=== PATIENT | male | born 1985 | race African-American/Black ===

== ENCOUNTER 2017-01-01 14:27 | Emergency (ER) | payer SELFPAY ==
[~2017-01-01] VITALS: Ht 165.1 cm; Wt 95.0 kg
[~2017-01-01 14:27] MED LIST: CYCL-36 PO; IBUP800T23 PO
[2017-01-01 14:28] VITALS: BP 136/86; PULSE 89; RESP 17; TEMP 98.5; O2SAT 96
--- NOTE | 2017-01-01 15:14 | PD ---
HPI Chief Complaint: Back/ Neck Pain or Injury Time Seen by Provider: 15:12 Travel History International Travel<30 days: No Contact w/Intl Traveler<30days: No Traveled to known affect area: No History of Present Illness HPI Patient comes in complaining of a muscle soreness to his upper back ongoing for 3 days. Pain is constant but gets worse at night and with certain movement. Patient denies doing anything for this aside from taking [id number] sleeping pills last night to help sleep. Patient denies any known trauma, fevers, loss or change in bowel or bladder, IV drug use, chest pain, or shortness of breath. Patient reports he does a lot of heavy lifting at his job. PFSH Past Medical History Medical History: Denies Significant Hx Social History Alcohol Use: Yes Tobacco Use: Yes Substance Use: Yes (marijuana) Allergies-Medications (Allergen,Severity, Reaction): Coded Allergies: No Known Allergies (Unverified , 01/01/17) Reported Meds & Prescriptions Reported Meds & Active Scripts Active Diclofenac Sodium DR (Diclofenac Sodium) 75 Mg Tabdr 75 Mg PO Q12HR PRN Robaxin (Methocarbamol) 500 Mg Tab 500 Mg PO Q8HR PRN Review of Systems Except as stated in HPI: all other systems reviewed are Neg Physical Exam Narrative GENERAL: Well-developed, overly nourished, in no acute distress, and non-ill appearing. SKIN: Warm and dry. HEAD: Atraumatic. Normocephalic. EYES: Pupils equal and round. EOMI. No scleral icterus. No injection or drainage. ENT: No nasal bleeding or discharge. Mucous membranes pink and moist. NECK: Trachea midline. Supple. No nuclear rigidity. RESPIRATORY: No accessory muscle use. No respiratory distress. MUSCULOSKELETAL: No obvious deformities. No clubbing. No cyanosis. No edema. Full range of motion. No tenderness or crepitus or midline thoracic spine. Patient reports tenderness to palpation throughout the musculature of his posterior thoracic cavity. NEUROLOGICAL: Awake and alert. No obvious cranial nerve deficits. Motor grossly within normal limits. Normal speech. PSYCHIATRIC: Appropriate mood and affect; insight and judgment normal. Data Data Last Documented VS Vital Signs Date Time Temp Pulse Resp B/P Pulse Ox O2 Delivery O2 Flow Rate FiO2 01/01/17 14:28 98.5 89 17 136/86 96 Room Air MDM Medical Decision Making Medical Screen Exam Complete: Yes Emergency Medical Condition: Yes Differential Diagnosis Fracture, strain, contusion, other Narrative Course The patient presented complaining of back pain. There was no history of recent fall or blunt trauma. However, history elicited activity likely causing muscular strain and injury. There was no evidence to support genitourinary etiology. There is also no evidence to suggest vascular pathology such as AAA dissection. No fevers or other evidence to suspect infectious processes, abscess , osteomyelitis etc. The patients neurological exam is normal with normal motor and sensory. There is no saddle paresthesias reported and no bowel or bladder incontinence or retention. I suspect the pain is mechanical in nature. Clinical suspicion, plan of care and management was discussed with the patient. The patient was instructed to follow up with their health care provider. The patient was also instructed to return if the pain worsened, changed, or developed weakness or bowel or bladder trouble. The patient agreed with plan. Patient in no obvious distress upon re-evaluation. Patient was asked if they wanted to speak to my attending, which the patient did not wish to do at this time. Any questions/concerns in reference to patient diagnosis/condition discussed and clarified prior to patient's discharge. Reinforced sheer importance of close follow up with patient's primary physician or primary care clinic. Instructed patient to return to ED immediately, if symptoms return/ worsen. Pt showed understanding of above instructions. Further instructions and recommendations were detailed in discharge paperwork. Pt ambulated without difficulty out of ED at discharge. Diagnosis Primary Impression: Thoracic back pain Qualified Code: M54.6 - Bilateral thoracic back pain, unspecified chronicity Referrals: Stef Downs MD Patient Instructions: General Instructions, Thoracic Back Strain (ED), Upper Back Exercises (GEN) Departure Forms: Work Release Enter return to work date: Jan 03, 2017 Additional Instructions: Follow-up with your primary care physician and/or orthopedics this week for reevaluation. Take all medication as prescribed. Return to the emergency department if symptoms get worse. Med/Other Pt SpecificInfo: Prescription(s) given Scripts Diclofenac Sodium DR 75 Mg Tabdr75 Mg PO Q12HR PRN (PAIN SCALE 1 TO 10) #12 TAB Ref 0 Prov:Evgeny Murray MD 01/01/17 Methocarbamol (Robaxin)500 Mg Jcu250 Mg PO Q8HR PRN (MUSCLE PAIN) #15 TAB Ref 0 Prov:Evgeny Murray MD 01/01/17 Disposition: 01 DISCHARGE HOME Condition: Stable Vidal Deleon Jan 01, 2017 15:14 Vidal Deleon Jan 01, 2017 15:14
[2017-01-01] MEDS ORDERED: DICL75TA PO (15:15)
[2017-01-01] MEDS ORDERED: ROBA500T PO (15:15)
== END 2017-01-01 15:49 | disposition home or self-care (01) ==
LOC: NEPB 14:27
DX: M54.6 Pain in thoracic spine (principal); Z72.0 Tobacco use; X50.0XXA Overexertion from strenuous movement or load, initial encounter; Y93.9 Activity, unspecified; Y92.9 Unspecified place or not applicable; Y99.0 Civilian activity done for income or pay
CPT/HCPCS: 99283

== ENCOUNTER 2017-07-04 10:37 | Emergency (ER) | payer SELFPAY ==
[~2017-07-04] VITALS: Ht 165.1 cm; Wt 84.0 kg
[~2017-07-04 10:37] MED LIST changes: -CYCL-36 PO; +DICL75TA PO; -IBUP800T23 PO; +ROBA500T PO
[2017-07-04 10:39] VITALS: BP 214/124; PULSE 50; RESP 19; TEMP 98.2; O2SAT 97
[2017-07-04] MEDS ORDERED: SODIUM CHLOR 0.9% 1000 ML INJ 1,000 ML IV SCH (10:53)
[2017-07-04] MEDS ORDERED: LIDOCAINE VISCOUS 2% SOLN 15 ML UDC PO ONE (11:00)
[2017-07-04] MEDS ORDERED: ALUMINUM/MAGNESIUM/SIMETH 30 ML CUP PO ONE (11:00)
[2017-07-04] MEDS ORDERED: SODIUM CHLORIDE 0.9% FLUSH 10 ML FLUSH IV FLUSH PRN (11:00)
[2017-07-04] MEDS ORDERED: ONDANSETRON HCL 4 MG/2 ML VIAL IVP ONE (11:00)
[2017-07-04] MEDS ORDERED: MORPHINE SULFATE 8 MG/ML INJ IV PUSH ONE (11:00)
--- NOTE | 2017-07-04 11:02 | PD ---
HPI Chief Complaint: GI Complaint Time Seen by Provider: 10:53 Travel History International Travel<30 days: No Contact w/Intl Traveler<30days: No Traveled to known affect area: No History of Present Illness HPI Patient is a 32-year-old male smoker presents emergency Department with sudden onset epigastric pain radiating to his back after dropping off his daughter at school this morning. According to EMS the patient felt well enough. [place] proceeded to a local pharmacy and bought some Tums and took them but that did not help. He states been feeling nauseous and dehydrated this denies a history of working out in the sun no history of alcohol ingestion. He states that yesterday when going to bed he felt fine. He states he never had these symptoms before. He states his symptoms are severe. [facility] Past Medical History Medical History: Denies Significant Hx Past Surgical History Surgical History: No Previous Surgery Social History Alcohol Use: No Tobacco Use: Yes (1 PPD) Substance Use: Yes (marijuana) Allergies-Medications (Allergen,Severity, Reaction): Coded Allergies: No Known Allergies (Unverified , 07/04/17) Reported Meds & Prescriptions Reported Meds & Active Scripts Active Pantoprazole (Pantoprazole Sodium) 40 Mg Tab 40 Mg PO DAILY Bentyl (Dicyclomine HCl) 10 Mg Cap 10 Mg PO TID PRN Zofran (Ondansetron HCl) 4 Mg Tab 4 Mg PO Q6HR PRN Review of Systems Except as stated in HPI: all other systems reviewed are Neg Physical Exam Narrative GENERAL: Well-developed well-nourished, writhing back and forth in the ER stretcher appears to be in significant pain. He is diaphoretic SKIN: Focused skin assessment warm/dry. HEAD: Atraumatic. Normocephalic. EYES: Pupils equal and round. No scleral icterus. No injection or drainage. ENT: No nasal bleeding or discharge. Mucous membranes pink and moist. NECK: Trachea midline. No JVD. CARDIOVASCULAR: Regular rate and rhythm. No murmur appreciated. RESPIRATORY: No accessory muscle use. Clear to auscultation. Breath sounds equal bilaterally. GASTROINTESTINAL: Abdomen soft, moderately tender in the epigastric area., nondistended. Hepatic and splenic margins not palpable. No CVA tenderness. MUSCULOSKELETAL: No obvious deformities. No clubbing. No cyanosis. No edema. NEUROLOGICAL: Awake and alert. No obvious cranial nerve deficits. Motor grossly within normal limits. Normal speech. PSYCHIATRIC: Appropriate mood and affect; insight and judgment normal. Data Data Last Documented VS Vital Signs Date Time Temp Pulse Resp B/P (MAP) Pulse Ox O2 Delivery O2 Flow Rate FiO2 07/04/17 14:33 07/04/17 14:16 55 20 98 Room Air 07/04/17 10:39 98.2 Orders Orders Complete Blood Count With Diff (07/04/17 10:53) Comprehensive Metabolic Panel (07/04/17 10:53) Lipase (07/04/17 10:53) Prothrombin Time / Inr (Pt) (07/04/17 10:53) Act Partial Throm Time (Ptt) (07/04/17 10:53) Urinalysis - C+S If Indicated (07/04/17 10:53) Iv Access Insert/Monitor (07/04/17 10:53) Ecg Monitoring (07/04/17 10:53) Oximetry (07/04/17 10:53) Ondansetron Inj (Zofran Inj) (07/04/17 11:00) Sodium Chlor 0.9% 1000 Ml Inj (Ns 1000 M (07/04/17 10:53) Sodium Chloride 0.9% Flush (Ns Flush) (07/04/17 11:00) Morphine Inj (Morphine Inj) (07/04/17 11:00) Al-Mag Hy-Si 40-40-4 Mg/Ml Liq (Mag-Al P (07/04/17 11:00) Lidocaine 2% Viscous (Xylocaine 2% Visco (07/04/17 11:00) Cta Thor Abd Aorta W Iv C W3d (07/04/17 ) Creatine Kinase (Cpk) (07/04/17 10:53) Iohexol 350 Inj (Omnipaque 350 Inj) (07/04/17 11:48) Labs Laboratory Tests Test 07/04/17 11:05 07/04/17 13:45 White Blood Count 22.9 TH/MM3 Red Blood Count 5.22 MIL/MM3 Hemoglobin 14.7 GM/DL Hematocrit 44.2 % Mean Corpuscular Volume 84.7 FL Mean Corpuscular Hemoglobin 28.2 PG Mean Corpuscular Hemoglobin Concent 33.3 % Red Cell Distribution Width 14.1 % Platelet Count 132 TH/MM3 Mean Platelet Volume 10.4 FL Neutrophils (%) (Auto) 85.5 % Lymphocytes (%) (Auto) 9.8 % Monocytes (%) (Auto) 3.9 % Eosinophils (%) (Auto) 0.6 % Basophils (%) (Auto) 0.2 % Neutrophils # (Auto) 19.7 TH/MM3 Lymphocytes # (Auto) 2.2 TH/MM3 Monocytes # (Auto) 0.9 TH/MM3 Eosinophils # (Auto) 0.1 TH/MM3 Basophils # (Auto) 0.0 TH/MM3 CBC Comment AUTO DIFF Differential Comment AUTO DIFF CONFIRMED Platelet Estimate LOW Platelet Morphology Comment NORMAL Prothrombin Time 11.0 SEC Prothromb Time International Ratio 1.0 RATIO Activated Partial Thromboplast Time 27.0 SEC Blood Urea Nitrogen 12 MG/DL Creatinine 1.00 MG/DL Random Glucose 134 MG/DL Total Protein 8.2 GM/DL Albumin 4.0 GM/DL Calcium Level 8.8 MG/DL Alkaline Phosphatase 58 U/L Aspartate Amino Transf (AST/SGOT) 20 U/L Alanine Aminotransferase (ALT/SGPT) 15 U/L Total Bilirubin 0.4 MG/DL Sodium Level 139 MEQ/L Potassium Level 3.4 MEQ/L Chloride Level 105 MEQ/L Carbon Dioxide Level 25.9 MEQ/L Anion Gap 8 MEQ/L Estimat Glomerular Filtration Rate 106 ML/MIN Total Creatine Kinase 248 U/L Lipase 248 U/L Urine Collection Type VOIDED Urine Color YELLOW Urine Turbidity CLEAR Urine pH 5.0 Urine Specific [place] GREATER THAN 1.030 Urine Protein NEG mg/dL Urine Glucose (UA) NEG mg/dL Urine Ketones NEG mg/dL Urine Occult Blood NEG Urine Nitrite NEG Urine Bilirubin NEG Urine Leukocyte Esterase NEG Urine WBC 0-2 /hpf Urine Squamous Epithelial Cells 0-2 /hpf Urine Mucus FEW /lpf Urine Sperm FEW Microscopic Urinalysis Comment CULT NOT INDICATED MDM Medical Decision Making Medical Screen Exam Complete: Yes Emergency Medical Condition: Yes Differential Diagnosis pancreatitis, dissection, cholecystitis, gastritis, acute abdomen. Narrative Course Patient roomed in emergency department, he appears fairly uncomfortable was given morphine GI cocktail Zofran. On multiple reassessments he is sleeping soundly and in no obvious distress. Arouses easily and his Rafat tenderness is resolved. 22,000 white count CAT scan of the abdomen was performed which shows no significant abdominal pathology. This is a CTA chest aorta and aortic caliber and appearance is normal according to reading radiologist: Last 24 hours Impressions Aorta CTA 07/04/17 0000 Signed Impressions: Service Date/Time: Tuesday, July 04, 2017 11:17 - CONCLUSION: Negative for dissection. Orlin Randall MD FACR The remainder of the report from the CT abdomen shows no obvious source of his abdominal pain. Gastric causes need to be considered. The patient is feeling better and would like to go home. Shortly after place for discharge was informed by nursing that he is still feeling lousy, was discussed with him that if he wanted to stay in the hospital for further pain control and evaluation demonstrated a white count this would be appropriate that he would like to try going home at this time. Multiple prescriptions written, discussed return to ED criteria. He is calling a ride home per my instructions as he received morphine. He states that he will not be driving nor walking home. Diagnosis Primary Impression: Abdominal pain Additional Impression: Leukocytosis Med/Other Pt SpecificInfo: Prescription(s) given Scripts Pantoprazole (Pantoprazole) 40 Mg Tab 40 MG PO DAILY for Reflux, #30 TAB 0 Refills Prov: Evgeny Murray MD 07/04/17 Dicyclomine (Bentyl) 10 Mg Cap 10 MG PO TID Y for Bowel Management, #30 CAP 0 Refills Prov: Evgeny Murray MD 07/04/17 Ondansetron (Zofran) 4 Mg Tab 4 MG PO Q6HR Y for NAUSEA OR VOMITING, #30 TAB 0 Refills Prov: Evgeny Murray MD 07/04/17 Disposition: 01 DISCHARGE HOME Condition: Stable Evgeny Murray MD Jul 04, 2017 11:02
[2017-07-04 11:05] VITALS: BP 161/100; PULSE 50; RESP 24; RESP 26; O2SAT 97
[2017-07-04 11:25] LABS: AUTOMATED NEUTROPHIL # 19.7 TH/MM3 (1.8-7.7); BASOPHIL % 0.2 % (0.0-2.0); EOSINOPHIL # 0.1 TH/MM3 (0-0.4); EOSINOPHIL % 0.6 % (0.0-4.0); HEMATOCRIT 44.2 % (39.0-51.0); LYMPH % 9.8 % (9.0-44.0); LYMPHOCYTE # 2.2 TH/MM3 (1.0-4.8); MEAN CELL VOLUME 84.7 FL (80.0-100.0); MEAN CORPUSCULAR HEMOGLOBIN 28.2 PG (27.0-34.0); MEAN CORPUSCULAR HGB CONC 33.3 % (32.0-36.0); MONO % 3.9 % (0.0-8.0); NEUT % 85.5 % (16.0-70.0); PLATELET COUNT 132 TH/MM3 (150-450); RED BLOOD COUNT 5.22 MIL/MM3 (4.50-5.90); RED CELL DISTRIBUTION WIDTH 14.1 % (11.6-17.2); WHITE BLOOD COUNT 22.9 TH/MM3 (4.0-11.0)
[2017-07-04 11:26] LABS: HEMO FLAGS AUTO DIFF
[2017-07-04 11:30] LABS: CHLORIDE 105 MEQ/L (98-107); POTASSIUM 3.4 MEQ/L (3.5-5.1); SODIUM (NA) 139 MEQ/L (136-145)
[2017-07-04 11:35] LABS: ANION GAP 8 MEQ/L (5-15); BICARBONATE 25.9 MEQ/L (21.0-32.0); BLOOD UREA NITROGEN 12 MG/DL (7-18)
[2017-07-04 11:38] LABS: ALT (GPT) 15 U/L (12-78); AST (GOT) 20 U/L (15-37); GLOMERULAR FILTRATION RATE 106 ML/MIN (>89)
[2017-07-04 11:39] LABS: TOTAL BILIRUBIN ADULT 0.4 MG/DL (0.2-1.0)
[2017-07-04 11:40] LABS: ALKALINE PHOSPHATASE 58 U/L (45-117); CREATINE KINASE 248 U/L (39-308)
[2017-07-04] MEDS ORDERED: IOHEXOL 350 MG/ML 10 ML VIAL (for RAD DIAG) IVCONTRAST ONE (11:48)
--- NOTE | 2017-07-04 12:18 | RADRPT ---
EXAM DATE/TIME: 07/04/2017 11:17 [place] COMPARISON: No previous studies available for comparison. INDICATIONS : Epigastric pain radiating to right lower quadrant. IV CONTRAST: 95 cc Omnipaque 350 (iohexol) IV RADIATION DOSE: 17.77 CTDIvol (mGy) MEDICAL HISTORY : None SURGICAL HISTORY : None. ENCOUNTER: Initial ACUITY: 1 day PAIN SCALE: 10/10 LOCATION: Right lower quadrant epigastric TECHNIQUE: Volumetric scanning was performed using a multi-row detector CT scanner. The data was post processed with a variety of visualization algorithms including full volume maximum intensity projection, multi -planar sliding thin slab reformation, curved planar reformation, and surface rendering techniques. Using automated exposure control and adjustment of the mA and/or kV according to patient size, radiat ion dose was kept as low as reasonably achievable to obtain optimal diagnostic quality images. DICOM format image data is available electronically for review and comparison. FINDINGS: LUNGS: There is no consolidation or pneumothorax. No concerning pulmonary nodule is visualized. No pleural fluid is present. MEDIASTINUM: No abnormally enlarged lymph nodes by CT criteria. No axillary or hilar abnormalities are identified. ABDOMEN: The liver and spleen are free of focal defects. The gallbladder and pancreas demonstrate no abnormali ty. The adrenal glands are normal. The kidneys demonstrate no evidence of solid renal mass or hydrone phrosis. No free fluid or abdominal masses are identified. No para-aortic adenopathy is seen. PELVIS: No evidence of free fluid or pelvic mass. No abnormally enlarged inguinal or retroperitoneal lymph no alfa are present. The bladder is unremarkable. THORACIC AORTA: The thoracic aortic root is normal with normal branching of the great vessels. There is no evidence of aneurysm or dissection. ABDOMINAL AORTA: The aorta is normal in caliber without aneurysm or dissection. The renal arteries are patent bilater ally. The proximal celiac and superior mesenteric arteries are patent and normal in diameter. PELVIC VESSELS: The internal iliac and external iliac vessels are patent without aneurysm or stenosis. CONCLUSION: Negative for dissection. Orlin Randall MD FACR on July 04, 2017 at 12:13 Board Certified Radiologist. This report was verified electronically.
[2017-07-04 13:17] LABS: PLATELET ESTIMATE SMEAR LOW (NORMAL); PLATELET MORPHOLOGY NORMAL (NORMAL); SCAN/DIFF AUTO DIFF CONFIRMED
[2017-07-04] MEDS ORDERED: ZOFR4TAB PO (13:29)
[2017-07-04] MEDS ORDERED: DICY10 PO (13:29)
[2017-07-04] MEDS ORDERED: PANT40TA3 PO (13:32)
[2017-07-04 13:55] LABS: BLOOD, URINE NEG (NEG); GLUCOSE,URINE NEG (NEG); KETONE, URINE NEG (NEG); NITRITE,URINE NEG (NEG)
[2017-07-04 14:11] LABS: METHOD OF COLLECTION VOIDED; URINE COLOR YELLOW (YELLW/STRAW)
[2017-07-04 14:12] LABS: MUCUS URINE FEW /lpf (OCC)
[2017-07-04 14:13] LABS: COMMENT (UR) CULT NOT INDICATED; CULTURE IF INDICATED CULT NOT INDICATED; SQUAMOUS EPITHELIAL CELL URINE 0-2 /hpf (0-5); WBC, URINE 0-2 /hpf (0-5)
[2017-07-04 14:16] VITALS: BP 170/100; PULSE 55; RESP 20; O2SAT 98
== END 2017-07-04 14:38 | disposition home or self-care (01) ==
LOC: PHED 10:37
DX: R10.13 Epigastric pain (principal); D72.829 Elevated white blood cell count, unspecified; F17.210 Nicotine dependence, cigarettes, uncomplicated; R11.0 Nausea; R61 Generalized hyperhidrosis
CPT/HCPCS: 71275; 74174; 80053; 81001; 82550; 83690; 85025; 85610; 85730; 96374; 96375; 99285; J2270; J2405; J7030; Q9967

== ENCOUNTER 2017-11-25 07:16 | Emergency (ER) | payer SELFPAY ==
[~2017-11-25] VITALS: Ht 167.6 cm; Wt 100.0 kg
[~2017-11-25 07:16] MED LIST changes: -DICL75TA PO; +DICY10 PO; +PANT40TA3 PO; -ROBA500T PO; +ZOFR4TAB PO
[2017-11-25 07:24] VITALS: BP 159/94; PULSE 110; RESP 16; TEMP 100.8; O2SAT 95
--- NOTE | 2017-11-25 07:44 | PD ---
HPI Chief Complaint: Cold / Flu Symptoms Time Seen by Provider: 07:34 Travel History International Travel<30 days: No Contact w/Intl Traveler<30days: No Traveled to known affect area: No History of Present Illness HPI Patient's 32-year-old male presents emergency department for evaluation of sore throat and painful swallowing for the past 24-48 hours. Denies any cough endorses congestion denies any fevers. Denies any close sick contacts. States otherwise healthy. States symptoms are moderate, gradually worsening, duration as above, associated signs symptoms and context as above. PFSH Past Medical History Medical History: Denies Significant Hx Influenza Vaccination: No Past Surgical History Surgical History: No Previous Surgery Social History Alcohol Use: No Tobacco Use: Yes (1 PPD) Substance Use: Yes (marijuana) Allergies-Medications (Allergen,Severity, Reaction): Coded Allergies: No Known Allergies (Unverified Allergy, Unknown, 11/25/17) Reported Meds & Prescriptions Reported Meds & Active Scripts Active No Active Prescriptions or Reported Medications Review of Systems Except as stated in HPI: all other systems reviewed are Neg Physical Exam Narrative GENERAL: Well-nourished, well-developed patient. SKIN: Focused skin assessment warm/dry. HEAD: Normocephalic. EYES: No scleral icterus. No injection or drainage. ENT: Tonsils are erythematous with some minimal purulent discharge, he swallows even, no hot potato voice. TMs are clear bilaterally. NECK: Supple, trachea midline. No JVD small chain anterior cervical lymphadenopathy bilaterally. CARDIOVASCULAR: Regular rate and rhythm without murmurs, gallops, or rubs. RESPIRATORY: Breath sounds equal bilaterally and clear.. No accessory muscle use. GASTROINTESTINAL: Abdomen soft, non-tender, nondistended. MUSCULOSKELETAL: No cyanosis, or edema. BACK: Nontender without obvious deformity. No CVA tenderness. Data Data Last Documented VS Vital Signs Date Time Temp Pulse Resp B/P (MAP) Pulse Ox O2 Delivery O2 Flow Rate FiO2 11/25/17 08:24 11/25/17 07:24 100.8 110 16 95 Orders Orders Penicillin G Benzathine Inj (Bicillin L- (11/25/17 07:45) Acetaminophen (Tylenol) (11/25/17 07:45) Ed Discharge Order (11/25/17 07:45) [facility] Medical Decision Making Medical Screen Exam Complete: Yes Emergency Medical Condition: Yes Differential Diagnosis Pharyngitis, streptococcal pharyngitis, URI, otitis. Narrative Course Patient roomed emergency department, signs symptoms consistent with simple uncomplicated streptococcal pharyngitis, after discussion of possible treatment regimens he agrees for Bicillin, discussed symptomatic management returned ED criteria as well as control of the spread of infection. He stable for discharge. Diagnosis Primary Impression: Streptococcal pharyngitis Referrals: [facility] Patient Instructions: General Instructions, Strep Throat (DC) Scripts No Active Prescriptions or Reported Meds Disposition: 01 DISCHARGE HOME Condition: Stable Evgeny Murray MD Nov 25, 2017 07:44
[2017-11-25] MEDS ORDERED: ACETAMINOPHEN 325 MG TAB PO ONE (07:45)
[2017-11-25] MEDS ORDERED: PENICILLIN G BENZATHINE 1,200,000 UNITS/2 ML SYRINGE IM ONE (07:45)
== END 2017-11-25 08:24 | disposition home or self-care (01) ==
LOC: NEPE 07:16
DX: J02.0 Streptococcal pharyngitis (principal); F17.210 Nicotine dependence, cigarettes, uncomplicated
CPT/HCPCS: 96372; 99284; J0561

== ENCOUNTER 2018-10-12 22:37 | Observation (INO) ==
[2018-10-12] MEDS ORDERED: Sod Chloride 0.9% Inj 1,000 ML IV.SIG ONE (23:25)
[2018-10-12] MEDS ORDERED: Morphine Inj 4 MG/ML Vial IV.PUSH ONE (23:25)
--- NOTE | 2018-10-12 23:35 | ED ---
HPI General Chief Complaint: Abdominal Pain Stated Complaint: abd pain Time Seen by Provider: 10/12/18 23:21 Source: patient Mode of arrival: ambulatory Limitations: no limitations History of Present Illness MD complaint: Reports abdominal pain Onset (ago): hour(s) (18:00) Pain Consistency: constant Location: Reports LLQ Severity: severe Quality: Reports cramping Radiation: Reports none Migration to: Reports no migration Relieving factors: nothing Exacerbating factors: nothing Associated symptoms: Reports nausea, vomiting and fever (Subjective); Denies diarrhea and dysuria Related Data Home Medications Medication Instructions Recorded Confirmed No Known Home Medications 10/12/18 10/12/18 Allergies Allergy/AdvReac Type Severity Reaction Status Date / Time No Known Allergies Allergy Verified 10/12/18 23:20 Review of Systems ROS: all other systems reviewed are negative [facility] Medical History Medical History Patient denies significant medical history (Acute) Surgical History Surgical History No history of previous surgery (Acute) Social History Social History Smoking Status: Current every day smoker Tobacco Type: Cigarettes How Often Do You Have a Drink Containing Alcohol: Never Recent Travel in [facility] within the Last 8 Weeks: No Recent Out of Country Travel within the Last 8 Weeks: No Immunization History Tetanus Immunization: Unsure Exam Const General: cooperative, healthy appearing, comfortable, no acute distress, well developed and well groomed Orientation: alert, awake and oriented x3 HENMT Head: normal to inspection, normocephalic and atraumatic Mouth: moist mucous membranes Eyes Conjunctivae: conjunctivae normal Sclera: sclerae normal EOM: EOM intact bilaterally Neck Neck: normal visual inspection and full ROM Chest Chest: normal inspection of the chest Resp Effort & Inspection: normal respiratory effort and able to speak in complete sentences Auscultation: clear to auscultation bilaterally Cardio Rate: regular rate Rhythm: regular rhythm GI Inspection: normal to inspection Palpation: soft and tender in the LLQ Auscultation: hypoactive bowel sounds Back/Spine/Pelvis Cervical Spine: cervical ROM normal Thoracic/Lumbar Spine: thoraco-lumbar ROM normal Skin General: no rashes or lesions noted and turgor normal Neuro General: alert, awake, oriented x3, moves all extremities and CN's II-XI intact bilaterally Extrem General: normal to inspection and full ROM Psych Appearance: grossly normal Mental Status: mental status grossly normal Speech and Movement: speech and movement normal Mood: congruent mood Affect: normal affect Attitude: cooperative Thought Process: normal Thought Content: normal Judgment: judgment good Course Initial Documented Vital Signs Temperature 97.7 F 10/12/18 22:48 Pulse Rate 62 10/12/18 22:48 Respiratory Rate 16 10/12/18 22:48 Blood Pressure 184/106 H 10/12/18 22:48 Pulse Oximetry 99 10/12/18 22:48 Last Documented Vital Signs Temperature 97.7 F 10/12/18 22:48 Pulse Rate 62 10/12/18 22:48 Respiratory Rate 16 10/12/18 22:48 Blood Pressure 184/106 H 10/12/18 22:48 Pulse Oximetry 97 10/12/18 23:49 Medical Decision Making MDM Narrative Medical decision making narrative: Patient presents with chief complaint of left lower quadrant abdominal pain which started at 6 PM after eating. He describes a cramping pain. He reports associated nausea and vomiting. He denies diarrhea. He denies fever. He denies urinary tract symptoms. He has not had any sick contacts. On exam, his abdomen is soft. Bowel sounds are quiet. There is some mild tenderness in the left lower quadrant without guarding or rebound. Started. He will be given IV morphine and Zofran for her symptoms. Abdominal pain workup is in process. CT shows appendicitis. The patient will be admitted for surgery in the morning. He has been treated empirically with Zosyn. Medical Screen Exam Complete: Yes Emergency Medical Condition: Yes Differential Diagnosis Differential Diagnosis: Differential diagnosis of abdominal pain includes but is not limited to gastritis, pancreatitis, hepatitis, gastroenteritis, constipation, urinary retention, peptic ulcer disease, diverticulitis or appendicitis Lab Data Lab results reviewed: Yes I reviewed the patient's lab results. Result diagrams: 10/12/18 23:25 10/12/18 23:25 Lab Results 10/12/18 10/12/18 Range/Units 23:25 23:25 WBC 19.8 H (4.0-11.0) th/mm3 RBC 5.31 (4.50-5.90) mil/mm3 Hgb 15.1 (13.0-17.0) gm/dL Hct 45.6 (39.0-51.0) % MCV 85.9 (80.0-100.0) fL MCH 28.5 (27.0-34.0) pg MCHC 33.1 (32.0-36.0) % RDW 15.6 (11.6-17.2) % Plt Count 146 L (150-450) th/mm3 MPV 10.6 (7.0-11.0) fL Neut % (Auto) 85.6 H (16.0-70.0) % Lymph % (Auto) 9.2 (9.0-44.0) % [place] % (Auto) 4.7 (0.0-8.0) % Eos % (Auto) 0.2 (0.0-4.0) % Baso % (Auto) 0.3 (0.0-2.0) % Neut # (Auto) 17.0 H (1.8-7.7) th/mm3 Lymph # (Auto) 1.8 (1.0-4.8) th/mm3 [place] # (Auto) 0.9 (0.0-0.9) th/mm3 Eos # (Auto) 0.0 (0.0-0.4) th/mm3 Baso # (Auto) 0.1 (0.0-0.2) th/mm3 WBC Differential . Differential Comment Auto diff final Sodium 138 (136-145) meq/L Potassium 4.1 (3.5-5.1) meq/L Chloride 105 (98-107) meq/L Carbon Dioxide 29.5 (21.0-32.0) meq/L Anion Gap 4 L (5-15) meq/L BUN 11 (7-18) mg/dL Creatinine 1.08 (0.60-1.30) mg/dL Estimated GFR Greater than 89 (>89) mL/min Random Glucose 115 H (74-106) mg/dL Calcium 8.9 (8.5-10.1) mg/dL Magnesium 2.1 (1.5-2.5) mg/dL Total Bilirubin 0.3 (0.2-1.0) mg/dL AST 23 (15-37) U/L ALT 22 (12-78) U/L Alkaline Phosphatase 70 (45-117) U/L Total Protein 8.6 H (6.4-8.2) g/dL Albumin 4.2 (3.4-5.0) g/dL Lipase 82 (73-393) U/L Imaging Data Radiologist's impression: Abdomen/Pelvis CT 10/13/18 00:00 CONCLUSION: 1. Acute appendicitis is noted without free air or free fluid. No evidence of abscess. 2. Pericholecystic fluid is seen. Discharge Plan Discharge Order Discharge Orders: ED Use Only Admit Order (Routine); Ordered 10/13/18 Ordered By: Martha Vicente Physicians Team ED Provider: Martha Vicente Primary Care Provider: Primary Care Ernai,Mckenzie Rxs /Orders / Referrals /Forms Prescriptions: No Action No Known Home Medications RF: 0 Status ED Status: Pending Admission
[2018-10-12 23:49] LABS: Baso # (Auto) 0.1 th/mm3 (0.0-0.2); Baso % (Auto) 0.3 % (0.0-2.0); Eos % (Auto) 0.2 % (0.0-4.0); Hematocrit 45.6 % (39.0-51.0); Hemoglobin 15.1 gm/dL (13.0-17.0); Lymph # (Auto) 1.8 th/mm3 (1.0-4.8); Lymph % (Auto) 9.2 % (9.0-44.0); Mean Corpuscular HGB Conc 33.1 % (32.0-36.0); Mean Corpuscular Hemoglobin 28.5 pg (27.0-34.0); Mean Corpuscular Volume 85.9 fL (80.0-100.0); Mean Platelet Volume 10.6 fL (7.0-11.0); Mono # (Auto) 0.9 th/mm3 (0.0-0.9); Mono % (Auto) 4.7 % (0.0-8.0); Neut % (Auto) 85.6 % (16.0-70.0); Platelet Count 146 th/mm3 (150-450); Red Blood Count 5.31 mil/mm3 (4.50-5.90); Red Cell Distribution Width 15.6 % (11.6-17.2); White Blood Count 19.8 th/mm3 (4.0-11.0)
[2018-10-13 00:07] LABS: Alanine Aminotransferase 22 U/L (12-78); Albumin 4.2 g/dL (3.4-5.0); Anion Gap 4 meq/L (5-15); Aspartate Aminotransferase 23 U/L (15-37); Blood Urea Nitrogen 11 mg/dL (7-18); Calcium 8.9 mg/dL (8.5-10.1); Carbon Dioxide 29.5 meq/L (21.0-32.0); Chloride 105 meq/L (98-107); Glomerular Filtration Rate Greater Than 89 mL/min (>89); Glucose,Random 115 mg/dL (74-106); Lipase 82 U/L (73-393); Magnesium 2.1 mg/dL (1.5-2.5); Potassium 4.1 meq/L (3.5-5.1); Sodium 138 meq/L (136-145)
[2018-10-13 00:09] LABS: Alkaline Phosphatase 70 U/L (45-117); Total Protein 8.6 g/dL (6.4-8.2)
--- NOTE | 2018-10-13 01:04 | CT ---
EXAM DATE: 10/13/2018 12:48 AM EST AGE/SEX: 33 years / Male INDICATIONS: Left lower quadrant pain. CLINICAL DATA: This is the patient's initial encounter. Patient reports that signs and symptoms have been present for 1 day and indicates a pain score of 9/10. MEDICAL/SURGICAL HISTORY: None. None. ORAL CONTRAST: No oral contrast ingested. RADIATION DOSE: 10.69 CTDI (mGy) COMPARISON: No prior exams available for comparison. TECHNIQUE: Multiple contiguous axial images were obtained through the abdomen and pelvis following b olus infusion of 75 ml Omnipaque 350 (iohexol) nonionic water-soluble contrast as a single exam dos e. No oral contrast ingested. Using automated exposure control and adjustment of the mA and/or kV ac cording to patient size, radiation dose was kept as low as reasonably achievable to obtain optimal di agnostic quality images. DICOM format image data is available electronically for review and comparis on. FINDINGS: Lung bases are clear. Liver, kidneys, adrenals, spleen, pancreas are unremarkable. Urinary bladder an d prostate are unremarkable. Osseous structures are intact. There is no evidence of bowel obstruction . Stomach is normal in appearance. Arising off the base of the cecum and coursing cephalad is a blind -ending tubular structure. It is abnormally dilated with adjacent inflammatory stranding. This abuts the inferior tip of the right hepatic lobe. This is characteristic of acute appendicitis. There is pe richolecystic fluid noted. CONCLUSION: 1. Acute appendicitis is noted without free air or free fluid. No evidence of abscess. 2. Pericholecystic fluid is seen. Electronically signed by: Cliff Kenney MD 10/13/2018 1:03 AM EST
[2018-10-13] MEDS ORDERED: Piperacil/Tazo 4.5 GM Premix 4.5 GM/100 ML BAG IV.SIG ONE (01:19)
[2018-10-13] MEDS ORDERED: Morphine Inj 4 MG/ML Vial IV.PUSH ONE (01:19)
[2018-10-13] MEDS: Sod Chloride 0.9% Inj 1,000 ML IV.CONT SCH ×2 (02:47→10:32)
[2018-10-13] MEDS: Morphine Inj 4 MG/ML Vial IV.PUSH PRN ×2 (03:34→08:13)
--- NOTE | 2018-10-13 08:52 | P.HPGS ---
History of Present Illness Service: General Surgery Primary Care Physician: No Primary Care Physician Chief Complaint: Abdominal pain History of Present Illness: This is a 33 year old male with no significant past medical history who presented with abdominal pain that began yesterday and has increased in intensity. A CT abdomen/pelvis was done which shows acute appendicitis without abscess. He does have an elevated WBC. A General Surgery admission has been requested. - Diagnosis (1) Acute appendicitis Review of Systems All other systems reviewed negative except as stated in HPI PMFSH - History History Provided By: Patient - Medical History Medical History: Medical History (Last Reviewed 10/13/18 @ 10:59 by ERON Lin) Patient denies significant medical history - Surgical History Surgical History: Surgical History (Last Reviewed 10/13/18 @ 10:59 by ERON Lin) No history of previous surgery - Tobacco History Tobacco Use In Past 30 Days: Yes Smoking Status: Current every day smoker Tobacco Type: Cigarettes - Alcohol History How Often Do You Have a Drink Containing Alcohol: Never - Substance Use History Substance History: No History of Abuse - Substance Use Type Marijuana Status: Active Route Used: Inhalation Reason for Use: Calm Down - Travel History Recent Travel in the [place] Within the Last 8 Weeks: No Recent Travel Out of the Country Within the Last 8 Weeks: No - Immunization History Tetanus Immunization: Unsure Hx Influenza Vaccine This Season: No Medications and Allergies Allergies Allergy/AdvReac Type Severity Reaction Status Date / Time No Known Allergies Allergy Verified 10/12/18 23:20 Home Medications Medication Instructions Recorded Confirmed Type No Known Home Medications 10/12/18 10/12/18 History Active Medications: Active Medications Sodium Chloride (Ns Inj) 1,000 mls @ 125 mls/hr IV.CONT .Q8H CARLITOS Last Admin: 10/13/18 02:47 Dose: 125 mls/hr Morphine Sulfate (Morphine Inj) 4 mg IV.PUSH Q4H PRN PRN Reason: ABDOMINAL PAIN Last Admin: 10/13/18 08:13 Dose: 4 mg Ondansetron HCl (Zofran Inj) 4 mg IV.PUSH Q6H PRN PRN Reason: NAUSEA Sodium Chloride (Ns Flush) 2 ml IV.FLUSH PRN PRN PRN Reason: FLUSH AFTER USING IV ACCESS Exam Vital signs: Vital Signs 10/12/18 22:48 10/12/18 23:49 10/13/18 02:46 Temperature 97.7 F Pulse Rate 62 75 Respiratory Rate 16 17 Blood Pressure 184/106 H 158/91 H Pulse Oximetry 99 97 97 10/13/18 03:36 10/13/18 08:00 Temperature 97.2 F L 98.3 F Pulse Rate 72 75 Respiratory Rate 18 18 Blood Pressure 162/77 H 162/95 H Pulse Oximetry 94 L 92 L Intake & Output 10/12/18 10/13/18 10/13/18 18:59 06:59 18:59 Intake Total 1100 / 1100 Output Total 300 / 300 Balance 800 / 800 Weight 103 kg Intake: IV 1100 / 1100 Zosyn 4.5 GM Premix 4.5 gm In 100 / 100 100 ml @ 200 mls/hr IV.SIG ONCE ONE Rx#:[id number] NS Inj 1,000 ML @ Wide Open IV. 1000 / 1000 SIG BOLUS ONE Rx#:[id number] Oral 0 / 0 Output: Urine 300 / 300 Stool 0 / 0 Other: # Voids 1 Weight On Admission 90.718 kg Narrative: GENERAL: Very pleasant 33 year old male resting in bed in no acute distress. SKIN: Warm and dry. HEAD: Atraumatic. Normocephalic. EYES: Pupils equal and round. No scleral icterus. No injection or drainage. ENT: No nasal bleeding or discharge. Mucous membranes pink and moist. NECK: Trachea midline. CARDIOVASCULAR: Regular rate and rhythm. RESPIRATORY: No accessory muscle use. Clear to auscultation. Breath sounds equal bilaterally. GASTROINTESTINAL: Abdomen soft, non distended. RLQ tenderness with palpation. No visible scars or hernias. MUSCULOSKELETAL: Extremities without clubbing, cyanosis, or edema. No obvious deformities. NEUROLOGICAL: Awake and alert. No obvious cranial nerve deficits. Motor grossly within normal limits. Five out of 5 muscle strength in the arms and legs. Normal speech. PSYCHIATRIC: Appropriate mood and affect; insight and judgment normal. Results - Labs 10/12/18 23:25 10/12/18 23:25 Laboratory Results - last 24 hr 10/12/18 10/12/18 23:25 23:25 WBC 19.8 H RBC 5.31 Hgb 15.1 Hct 45.6 MCV 85.9 MCH 28.5 MCHC 33.1 RDW 15.6 Plt Count 146 L MPV 10.6 Neut % (Auto) 85.6 H Lymph % (Auto) 9.2 Snyder % (Auto) 4.7 Eos % (Auto) 0.2 Baso % (Auto) 0.3 Neut # (Auto) 17.0 H Lymph # (Auto) 1.8 Snyder # (Auto) 0.9 Eos # (Auto) 0.0 Baso # (Auto) 0.1 WBC Differential . Differential Comment Auto diff final Sodium 138 Potassium 4.1 Chloride 105 Carbon Dioxide 29.5 Anion Gap 4 L BUN 11 Creatinine 1.08 Estimated GFR Greater than 89 Random Glucose 115 H Calcium 8.9 Magnesium 2.1 Total Bilirubin 0.3 AST 23 ALT 22 Alkaline Phosphatase 70 Total Protein 8.6 H Albumin 4.2 Lipase 82 - Imaging Imaging: ITS Impressions Abdomen/Pelvis CT 10/13/18 00:00 CONCLUSION: 1. Acute appendicitis is noted without free air or free fluid. No evidence of abscess. 2. Pericholecystic fluid is seen. CT scan - abdomen: image reviewed Caprini VTE Risk Assessment Caprini VTE Risk Assessment: No/Low Risk (score <= 1) VTE Pharmacological Exception Reason: Documented (Going to OR ) Caprini Risk Assessment Model: Point Value = 1 Point Value = 2 Point Value = 3 Point Value = 5 Age 41-60 Minor surgery BMI > 25 kg/m2 Swollen legs Varicose veins or History of unexplained or recurrent spontaneous Oral contraceptives or hormone replacement Sepsis (< 1 month) Serious lung disease, including pneumonia (< 1 month) Abnormal pulmonary function Acute myocardial infarction Congestive heart failure (< 1 month) History of inflammatory bowel disease Medical patient at bed rest Age 61-74 Arthroscopic surgery Major open surgery (> 45 min) Laparoscopic surgery (> 45 min) Malignancy Confined to bed (> 72 hours) Immobilizing plaster cast Central venous access Age >= 75 History of VTE Family history of VTE Factor V Leiden Prothrombin [id number] Lupus anticoagulant Anticardiolipin antibodies Elevated serum homocysteine Heparin-induced thrombocytopenia Other congenital or acquired thrombophilia Stroke (< 1 month) Elective arthroplasty Hip, pelvis, or leg fracture Acute spinal cord injury (< 1 month) Prophylaxis Regimen: Total Risk Factor Score Risk Level Prophylaxis Regimen 0-1 Low Early ambulation 2 Moderate Order ONE of the following: *Sequential Compression Device (SCD) *Heparin 5000 units SQ BID 3-4 Higher Order ONE of the following medications: *Heparin 5000 units SQ TID *Enoxaparin/Lovenox 40 mg SQ daily (WT < 150 kg, CrCl > 30 mL/min) *Enoxaparin/Lovenox 30 mg SQ daily (WT < 150 kg, CrCl > 10-29 mL/min) *Enoxaparin/Lovenox 30 mg SQ BID (WT < 150 kg, CrCl > 30 mL/min) AND/OR *Sequential Compression Device (SCD) 5 or more Highest Order ONE of the following medications: *Heparin 5000 units SQ TID (Preferred with Epidurals) *Enoxaparin/Lovenox 40 mg SQ daily (WT < 150 kg, CrCl > 30 mL/min) *Enoxaparin/Lovenox 30 mg SQ daily (WT < 150 kg, CrCl > 10-29 mL/min) *Enoxaparin/Lovenox 30 mg SQ BID (WT < 150 kg, CrCl > 30 mL/min) AND *Sequential Compression Device (SCD) Assessment and Plan - Assessment (1) Acute appendicitis Code(s): K35.80 - Unspecified acute appendicitis Status: Acute Plan: 33 year old male with RLQ abdominal pain; acute appendicitis -Plan for OR this afternoon -OR has been notified and will be available for first available time -NPO -IVF -Continue Zosyn -Procedure explained including risks and benefits -All questions answered - Plan I personally evaluated the patient in room 325, same-day surgery unit. The patient is experienced 2 days of pain fever nausea vomiting. Workup demonstrated elevated white count with a left shift. CT scan demonstrated findings consistent with acute appendicitis with the abnormal appendix projecting upward along the ascending colon with abnormal tip near the liver. Patient said no prior abdominal surgeries. He has abdominal tenderness on physical exam. I discussed with he and his in detail the procedure of laparoscopic appendectomy, possible open, including risks of bleeding, infection , injury to intra-abdominal contents including bowel or ureter, DVT pulmonary embolus and expectations for recovery. They understood and wished to proceed. Informed consent was obtained. The patient did received intravenous antibiotics. The patient was going to the operating room for laparoscopic appendectomy. The exam, history, and the medical decision-making described in the above note were completed with the assistance of the mid-level provider. I reviewed and agree with the findings presented. I attest that I had a [id number] encounter with the patient on the same day, and personally performed and documented my assessment and findings in the medical record. Discussed Condition With: Dr. Paris Ariza RN H&P: Quality - VTE Deep Vein Thrombosis/Pulmonary Embolism Present on Admission: No
[2018-10-13] MEDS ORDERED: Piperacil/Tazo 3.375 GM Premix 50 ML IV.SIG SCH (10:00)
[2018-10-13] MEDS ORDERED: Sodium Chlor 0.9% Inj 500 ML IV.CONT ONE (11:30)
[2018-10-13] MEDS ORDERED: Metoprolol Tartrate 25 MG Tablet PO ONE (11:30)
[2018-10-13] MEDS ORDERED: Chlorhexidine Gluconate 2% 1 Pack (2 Cloths) TOPICAL ONE (11:30)
[2018-10-13] MEDS ORDERED: Bupivacaine/Epinephrine Inj 0.25% 50 ML Vial ONE (11:33)
[2018-10-13] MEDS ORDERED: Sugammadex Inj 200 MG/2 ML Vial IV.PUSH ONE (11:44)
[2018-10-13] MEDS ORDERED: Post-op Orders (for Pharmacy) OTHER ONE (13:13)
[2018-10-13] MEDS ORDERED: Ketorolac Inj 30 MG/ML (IVP) Vial IV.PUSH PRN (13:13)
--- NOTE | 2018-10-13 13:13 | P.OP ---
- Preoperative Diagnosis (1) Acute appendicitis - Postoperative Diagnosis (1) Acute appendicitis Date of procedure: 10/13/18 Procedure: Laparoscopic appendectomy Anesthesia: GETA Surgeon: Eric Toledo MD Medical Appliance Maker: Yaritza Estimated blood loss (mL): 4 Pathology: other (Appendix to pathology) Operation and Findings: Patient was identified as Jennifer Ariza, taken to the operating room, and placed in a supine position. Sequential compression device were placed on bilateral lower extremities. Following induction of adequate general endotracheal anesthesia patient's abdomen was prepped and draped in usual sterile fashion with Betadine. A timeout procedure was performed. Following completion of the timeout procedure everyone's satisfaction within the room local anesthetic was infiltrated in the supraumbilical position. A small transverse incision was made above the umbilicus and dissection continued posteriorly to the base of the umbilicus which was retracted anteriorly with a Ayden clamp. The fascia in the supraumbilical position was incised vertically allowing for entry of the peritoneal cavity with a hemostat. Surgeon's finger performed in intraperitoneal location and the applied medical balloon Sena trocar was placed into the peritoneal cavity, its balloon inflated, and CO2 insufflation to a level of 15 mmHg ensued. Due to the location of the appendix in the upper abdomen to upper abdominal 5 mm trochars were placed in the upper abdomen after instillation of local anesthetic and incision the skin with a scalpel. Patient was rotated to the left in a reverse Trendelenburg position. The base of the appendix was identified level of the cecum and the appendix itself was adherent along the peritoneum of the mesentery of the ascending colon. In order to mobilize the appendix was best done by making an opening in the mesentery with a Harmonic scalpel and then dissecting along the posterior border of the appendix dividing the mesentery of the harmonic scalpel going from the proximal appendix to the distal appendix. The appendix was mobilized in its entirety and then a 0 PDS Endoloop was placed across the base the appendix at the level of the cecum. The appendix was amputated distal to this with the harmonic scalpel and placed into an Endo retrieval bag and removed through the supraumbilical fascial port incision site and passed off the field for pathologic evaluation. The right lateral abdomen was irrigated copiously with saline and suctioned out. There is no bleeding from the appendiceal mesentery. There was no injury to the cecum or ascending colon and hepatic flexure. No other obvious intra- abdominal abnormality was identified with the laparoscope. About 10 cc of local anesthetic was placed over the dissection site over the the ascending colon. Trochars were removed under direct visualization, there was no evidence of bleeding from trocar sites. The supraumbilical port was then removed after active desufflation of the abdominal cavity. Supraumbilical fascial defect including a small umbilical hernia was approximated with multiple interrupted 0 Vicryl sutures placed in a simple and [id number] fashion. Copious irrigation with saline was performed at each trocar site. More local anesthetic was placed around in the subcutaneous tissue of each trocar site. The skin incisions were approximated with 4-0 Monocryl subcuticular sutures. Dressings were applied with Mastisol and half-inch brown Steri-Strips. The patient tolerated the procedure without apparent complication. Sponge needle and instrument counts were correct at the end of the case. The patient was transported to PACU in stable condition.
[2018-10-13] MEDS ORDERED: fentaNYL Citrate Inj 100 MCG/2 ML Ampul ONE (13:34)
[2018-10-13 16:02] VITALS: BP 133/71; PULSE 88; RESP 18; TEMP 97.1; O2SAT 97
[2018-10-13] MEDS ORDERED: Senna/Docusate Sodium 8.6/50 MG Tablet PO SCH (21:00)
== END 2018-10-13 18:05 | disposition home or self-care (01) ==
LOC: NEPE 22:37 → NEDA 22:37 → N06 10-13 03:11
PROVIDERS: ADMIT Surgery; ATTEND Surgery
PROC: LAPAPPY (ICD-10-PCS; 2018-10-13 11:55)
DX: K35.80 Unspecified acute appendicitis; G47.30 Sleep apnea, unspecified; K42.9 Umbilical hernia without obstruction or gangrene; F17.210 Nicotine dependence, cigarettes, uncomplicated